=== PATIENT | male | born 1945 | race Caucasian/White ===

== ENCOUNTER 2016-11-20 19:13 | Emergency (ER) | payer MEDICARE, BC ==
[~2016-11-20] VITALS: Ht 185.4 cm; Wt 134.1 kg
[~2016-11-20 19:13] MED LIST: BETAPACE 80MG80 MG PO; BYSTOLIC20 MG PO; DIABETA 5MG5 MG/TAB PO; HCTZ 25MG TAB25 MG PO; LOTENSIN40 MG PO; MIDAMOR 5MG TAB5 MG PO; MOBIC15 MG PO; NORVASC 10MG10 MG PO; PERCOCET 325 MG1 TA2 PO; ULTRAM 50MG TAB50 MG PO
[2016-11-20] MEDS ORDERED: SYNTHROID0.05 MG/TA PO (19:26)
[2016-11-20] MEDS ORDERED: NORVASC 10MG10 MG PO (19:27)
[2016-11-20 20:08] LABS: INFLUENZA B NEGATIVE
[2016-11-20 20:27] VITALS: BP 155/80; PULSE 66
[2017-03-03] MEDS ORDERED: LIPITOR 10MG10 MG PO (08:03)
[2017-03-03] MEDS ORDERED: NORCO 325 MG-7.1 TAB PO (08:03)
[2017-03-03] MEDS ORDERED: NEURONTIN100 MG/CAP PO (08:04)
== END 2016-11-20 20:27 | disposition home or self-care (01) ==
LOC: COL.ER 19:13
PROVIDERS: Family Medicine
DX: R00.2 Palpitations (principal); I10 Essential (primary) hypertension; I48.91 Unspecified atrial fibrillation

== ENCOUNTER 2017-04-14 07:47 | Emergency (ER) | payer MEDICARE, BC ==
[~2017-04-14] VITALS: Ht 185.4 cm; Wt 129.5 kg
[~2017-04-14 07:47] MED LIST changes: +LIPITOR 10MG10 MG PO; +NEURONTIN100 MG/CAP PO; +NORCO 325 MG-7.1 TAB PO; +SYNTHROID0.05 MG/TA PO
[2017-04-14 07:49] VITALS: BP 153/87; PULSE 70; TEMP 99.4
[2017-04-14] MEDS ORDERED: LIPITOR 10MG10 MG PO (08:01)
[2017-04-14] MEDS ORDERED: PREDNISONE20 MG PO (08:41)
== END 2017-04-14 08:55 | disposition home or self-care (01) ==
LOC: COL.ER 07:47
DX: M25.531 Pain in right wrist (principal); I10 Essential (primary) hypertension; Z87.891 Personal history of nicotine dependence

== ENCOUNTER 2017-04-15 08:00 | Outpatient (RCR) | payer MEDICARE, BC ==
[2017-03-03 08:05] VITALS: BP 147/78; PULSE 72; TEMP 98
[2017-03-04 08:26] LABS: BASO % 0.2 % (0.0-2.0); EOS # 0.3 (0.0-0.7); GRAN % 68.3 % (42.2-75.2); LYMPH % 17.5 % (20.0-51.0); MEAN CELL VOLUME 89 fl (80.0-100.0); MEAN CORPUSCULAR HGB CONC 33 g/dl (33.0-37.0); MEAN PLATELET VOLUME 9.4 fl (7.4-10.4); MONO # 0.5 (0.1-0.6); MONO % 8.7 % (1.7-9.3); PLATELET COUNT 211 K/mm3 (130-400); RED BLOOD COUNT 3.53 M/mm3 (4.20-5.60); REDCELL DISTRIBUTION WIDTH-CV 12.7 % (11.5-14.5); WHITE BLOOD COUNT 5.8 K/mm3 (4.8-10.8)
[2017-03-04 08:27] LABS: HEMATOCRIT 31.5 % (42.0-52.0); HEMOGLOBIN 10.5 g/dl (13.5-18.0); MEAN CORPUSCULAR HEMOGLOBIN 30 pg (27.0-31.0)
[2017-03-04 08:30] VITALS: BP 168/93; PULSE 68; TEMP 98.2
[2017-03-04 08:54] LABS: ADJUSTED CALCIUM 9.7 mg/dL (8.4-10.2); ALBUMIN 3.4 gm/dL (3.5-5.0); C-REACTIVE PROTEIN 4.3 mg/dL (0.0-0.9); CALCIUM 9.2 mg/dL (8.4-10.2); CREATININE, serum 0.73 mg/dL (0.66-1.25); POTASSIUM 3.7 mmol/L (3.4-5.0); TOTAL PROTEIN 6.7 gm/dL (6.4-8.2)
[2017-03-04 08:58] LABS: ERYTHROCYTE SEDIMENTATION RATE 63 mm/hr (0-30)
[2017-03-05 09:17] VITALS: BP 132/71; PULSE 71; TEMP 98
[2017-03-06 08:00] VITALS: BP 134/70; PULSE 69; TEMP 98
[2017-03-07 08:06] VITALS: BP 93/57; PULSE 70; TEMP 98.2
[2017-03-08 08:20] VITALS: BP 135/73; PULSE 69; TEMP 98.3
[2017-03-09 08:13] VITALS: BP 127/70; PULSE 72; TEMP 98.3
[2017-03-10 06:55] VITALS: BP 152/79; PULSE 69; TEMP 98
[2017-03-11 07:26] VITALS: BP 126/65; PULSE 59; TEMP 98.5
[2017-03-11 07:45] LABS: BASO % 0.4 % (0.0-2.0); EOS # 0.1 (0.0-0.7); EOS % 2.1 % (0-4.0); GRAN # 3.3 (1.4-6.5); GRAN % 64.5 % (42.2-75.2); LYMPH # 1.2 (1.2-3.4); LYMPH % 23.8 % (20.0-51.0); MEAN CELL VOLUME 91 fl (80.0-100.0); MEAN CORPUSCULAR HGB CONC 33 g/dl (33.0-37.0); MEAN PLATELET VOLUME 9.2 fl (7.4-10.4); MONO # 0.5 (0.1-0.6); MONO % 8.8 % (1.7-9.3); PLATELET COUNT 247 K/mm3 (130-400); RED BLOOD COUNT 3.56 M/mm3 (4.20-5.60); REDCELL DISTRIBUTION WIDTH-CV 12.8 % (11.5-14.5); WHITE BLOOD COUNT 5.1 K/mm3 (4.8-10.8)
[2017-03-11 07:50] LABS: HEMATOCRIT 32.4 % (42.0-52.0); HEMOGLOBIN 10.6 g/dl (13.5-18.0); MEAN CORPUSCULAR HEMOGLOBIN 30 pg (27.0-31.0)
[2017-03-11 08:10] LABS: ADJUSTED CALCIUM 9.2 mg/dL (8.4-10.2); ALBUMIN 3.6 gm/dL (3.5-5.0); BILIRUBIN,TOTAL 0.7 mg/dL (0.0-1.0); C-REACTIVE PROTEIN 2.5 mg/dL (0.0-0.9); CALCIUM 8.9 mg/dL (8.4-10.2); CREATININE, serum 0.83 mg/dL (0.66-1.25); POTASSIUM 4.2 mmol/L (3.4-5.0); TOTAL PROTEIN 7.1 gm/dL (6.4-8.2)
[2017-03-12 08:08] VITALS: BP 152/90; PULSE 65; TEMP 98
[2017-03-13 08:04] VITALS: BP 128/67; PULSE 75; TEMP 98.3
[2017-03-14 07:57] VITALS: BP 147/91; PULSE 64; TEMP 98.2
[2017-03-15 08:28] VITALS: BP 129/74; PULSE 72; TEMP 98.6
[2017-03-16 08:11] VITALS: BP 138/81; PULSE 70; TEMP 98.7
[2017-03-17 07:14] VITALS: BP 121/75; PULSE 64; TEMP 98.2
[2017-03-18 07:16] VITALS: BP 136/82; PULSE 71; TEMP 97.6
[2017-03-19 08:06] VITALS: BP 122/66; PULSE 63; TEMP 97.8
[2017-03-20 08:30] VITALS: BP 143/84; PULSE 65; TEMP 98
[2017-03-21 08:05] VITALS: BP 134/77; PULSE 66; TEMP 98.4
[2017-03-22 06:41] VITALS: BP 118/78; PULSE 64; TEMP 98.5
[2017-03-22 07:52] LABS: BASO % 0.2 % (0.0-2.0); EOS # 0.1 (0.0-0.7); EOS % 2.3 % (0-4.0); GRAN # 3.6 (1.4-6.5); GRAN % 68.2 % (42.2-75.2); LYMPH # 1.1 (1.2-3.4); MEAN CELL VOLUME 89 fl (80.0-100.0); MEAN CORPUSCULAR HGB CONC 33 g/dl (33.0-37.0); MEAN PLATELET VOLUME 9.7 fl (7.4-10.4); MONO # 0.5 (0.1-0.6); MONO % 8.7 % (1.7-9.3); PLATELET COUNT 225 K/mm3 (130-400); RED BLOOD COUNT 3.82 M/mm3 (4.20-5.60); REDCELL DISTRIBUTION WIDTH-CV 13.2 % (11.5-14.5); WHITE BLOOD COUNT 5.3 K/mm3 (4.8-10.8)
[2017-03-22 07:55] LABS: HEMATOCRIT 34.1 % (42.0-52.0); HEMOGLOBIN 11.3 g/dl (13.5-18.0); MEAN CORPUSCULAR HEMOGLOBIN 30 pg (27.0-31.0)
[2017-03-22 08:10] LABS: ADJUSTED CALCIUM 9.1 mg/dL (8.4-10.2); ALBUMIN 3.7 gm/dL (3.5-5.0); BILIRUBIN,TOTAL 0.8 mg/dL (0.0-1.0); CALCIUM 8.9 mg/dL (8.4-10.2); CREATININE, serum 0.81 mg/dL (0.66-1.25); TOTAL PROTEIN 7.1 gm/dL (6.4-8.2)
[2017-03-22 08:25] LABS: ERYTHROCYTE SEDIMENTATION RATE 48 mm/hr (0-30)
[2017-03-23 08:20] VITALS: BP 126/88; PULSE 65; TEMP 98.3
[2017-03-24 07:23] VITALS: BP 124/81; PULSE 63; TEMP 98.8
[2017-03-25 08:48] VITALS: BP 135/72; PULSE 65; TEMP 98.3
[2017-03-26 08:37] VITALS: BP 133/86; PULSE 73; TEMP 98.3
[2017-03-27 07:57] VITALS: BP 135/67; PULSE 63; TEMP 98
[2017-03-28 08:14] VITALS: BP 142/67; PULSE 65; TEMP 98.2
[2017-03-29 08:00] VITALS: BP 132/71; PULSE 72; TEMP 98.6
[2017-03-29 08:28] VITALS: BP 121/68; PULSE 70; TEMP 98.5
[2017-03-29 08:33] LABS: BASO % 0.4 % (0.0-2.0); EOS # 0.1 (0.0-0.7); EOS % 2.7 % (0-4.0); GRAN % 62.7 % (42.2-75.2); HEMOGLOBIN 12.1 g/dl (13.5-18.0); LYMPH # 1.1 (1.2-3.4); LYMPH % 24.1 % (20.0-51.0); MEAN CELL VOLUME 89 fl (80.0-100.0); MEAN CORPUSCULAR HEMOGLOBIN 30 pg (27.0-31.0); MEAN CORPUSCULAR HGB CONC 33 g/dl (33.0-37.0); MEAN PLATELET VOLUME 9.9 fl (7.4-10.4); MONO # 0.5 (0.1-0.6); MONO % 9.7 % (1.7-9.3); PLATELET COUNT 214 K/mm3 (130-400); RED BLOOD COUNT 4.09 M/mm3 (4.20-5.60); REDCELL DISTRIBUTION WIDTH-CV 13.2 % (11.5-14.5); WHITE BLOOD COUNT 4.7 K/mm3 (4.8-10.8)
[2017-03-29 08:36] LABS: HEMATOCRIT 36.5 % (42.0-52.0)
[2017-03-29 08:54] LABS: ADJUSTED CALCIUM 9.4 mg/dL (8.4-10.2); ALBUMIN 3.9 gm/dL (3.5-5.0); BILIRUBIN,TOTAL 0.6 mg/dL (0.0-1.0); C-REACTIVE PROTEIN 0.9 mg/dL (0.0-0.9); CALCIUM 9.3 mg/dL (8.4-10.2); CREATININE, serum 0.8 mg/dL (0.66-1.25); POTASSIUM 3.8 mmol/L (3.4-5.0); TOTAL PROTEIN 7.6 gm/dL (6.4-8.2)
[2017-03-29 08:56] LABS: ERYTHROCYTE SEDIMENTATION RATE 35 mm/hr (0-30)
[2017-03-30 08:07] VITALS: BP 129/58; PULSE 65; TEMP 98.4
[2017-03-31 09:17] VITALS: BP 110/73; PULSE 65; TEMP 98.4
[2017-04-01 09:00] VITALS: BP 133/72; PULSE 69; TEMP 97.6
[2017-04-02 08:02] VITALS: BP 114/75; PULSE 73; TEMP 98.2
[2017-04-03 07:59] VITALS: BP 131/65; PULSE 56; TEMP 98.2
[2017-04-04 08:30] VITALS: BP 127/72; PULSE 63; TEMP 98.4
[2017-04-05 08:38] LABS: BASO % 0.5 % (0.0-2.0); EOS # 0.1 (0.0-0.7); EOS % 2.1 % (0-4.0); GRAN # 2.4 (1.4-6.5); GRAN % 55.5 % (42.2-75.2); HEMATOCRIT 37.5 % (42.0-52.0); HEMOGLOBIN 12.5 g/dl (13.5-18.0); LYMPH # 1.3 (1.2-3.4); LYMPH % 30.3 % (20.0-51.0); MEAN CELL VOLUME 88 fl (80.0-100.0); MEAN CORPUSCULAR HEMOGLOBIN 30 pg (27.0-31.0); MEAN CORPUSCULAR HGB CONC 33 g/dl (33.0-37.0); MEAN PLATELET VOLUME 9.7 fl (7.4-10.4); MONO # 0.5 (0.1-0.6); MONO % 11.1 % (1.7-9.3); PLATELET COUNT 203 K/mm3 (130-400); RED BLOOD COUNT 4.24 M/mm3 (4.20-5.60); REDCELL DISTRIBUTION WIDTH-CV 13.6 % (11.5-14.5); WHITE BLOOD COUNT 4.2 K/mm3 (4.8-10.8)
[2017-04-05 08:55] LABS: ADJUSTED CALCIUM 9.4 mg/dL (8.4-10.2); ALBUMIN 4.1 gm/dL (3.5-5.0); BILIRUBIN,TOTAL 0.8 mg/dL (0.0-1.0); C-REACTIVE PROTEIN 1.4 mg/dL (0.0-0.9); CALCIUM 9.5 mg/dL (8.4-10.2); CREATININE, serum 0.86 mg/dL (0.66-1.25); POTASSIUM 4.2 mmol/L (3.4-5.0); TOTAL PROTEIN 7.9 gm/dL (6.4-8.2)
[2017-04-05 09:14] VITALS: BP 105/62; PULSE 63; TEMP 98
[2017-04-05 09:26] LABS: ERYTHROCYTE SEDIMENTATION RATE 29 mm/hr (0-30)
[2017-04-06 08:06] VITALS: BP 124/66; PULSE 67; TEMP 98.2
[2017-04-07 08:03] VITALS: BP 123/77; PULSE 65; TEMP 98.8
[2017-04-08 08:19] VITALS: BP 134/69; PULSE 65; TEMP 98.2
[2017-04-09 08:01] VITALS: BP 117/71; PULSE 61; TEMP 98
[2017-04-10 08:09] VITALS: BP 113/69; PULSE 58; TEMP 98.1
[2017-04-11 09:45] VITALS: BP 146/69; PULSE 61; TEMP 98.3
[2017-04-12 08:55] LABS: BASO % 0.2 % (0.0-2.0); EOS # 0.1 (0.0-0.7); EOS % 1.9 % (0-4.0); GRAN # 3.2 (1.4-6.5); GRAN % 67.6 % (42.2-75.2); LYMPH % 21.4 % (20.0-51.0); MEAN CELL VOLUME 88 fl (80.0-100.0); MEAN CORPUSCULAR HEMOGLOBIN 29 pg (27.0-31.0); MEAN CORPUSCULAR HGB CONC 33 g/dl (33.0-37.0); MEAN PLATELET VOLUME 9.8 fl (7.4-10.4); MONO # 0.4 (0.1-0.6); MONO % 8.3 % (1.7-9.3); PLATELET COUNT 178 K/mm3 (130-400); RED BLOOD COUNT 4.09 M/mm3 (4.20-5.60); REDCELL DISTRIBUTION WIDTH-CV 13.4 % (11.5-14.5); WHITE BLOOD COUNT 4.7 K/mm3 (4.8-10.8)
[2017-04-12 08:56] LABS: HEMATOCRIT 36.1 % (42.0-52.0)
[2017-04-12 09:06] LABS: ALBUMIN 3.8 gm/dL (3.5-5.0); BILIRUBIN,TOTAL 0.5 mg/dL (0.0-1.0); C-REACTIVE PROTEIN 0.6 mg/dL (0.0-0.9); CALCIUM 8.8 mg/dL (8.4-10.2); CREATININE, serum 0.81 mg/dL (0.66-1.25); POTASSIUM 4.2 mmol/L (3.4-5.0); TOTAL PROTEIN 7.3 gm/dL (6.4-8.2)
[2017-04-12 09:22] LABS: ERYTHROCYTE SEDIMENTATION RATE 28 mm/hr (0-30)
[2017-04-13 08:07] VITALS: BP 148/81; PULSE 58; TEMP 98.2
[~2017-04-15] VITALS: Ht 185.4 cm; Wt 129.5 kg
[~2017-04-15 08:00] MED LIST changes: +PREDNISONE20 MG PO
== END 2017-04-16 16:36 | disposition home or self-care (01) ==
LOC: EUO 08:00
PROVIDERS: Family Medicine
DX: T81.4XXA Infection following a procedure, initial encounter (principal)
CPT/HCPCS: J0878; J1644

== ENCOUNTER → 2017-12-11 | Outpatient (CLI) | payer MEDICARE, BC | LOC: MHCPAIN 07:54 | DX: G89.29 Other chronic pain (principal); M47.817 Spondylosis without myelopathy or radiculopathy, lumbosacral region; M54.16 Radiculopathy, lumbar region; M53.3 Sacrococcygeal disorders, not elsewhere classified; M96.1 Postlaminectomy syndrome, not elsewhere classified | CPT/HCPCS: G0463 ==

== ENCOUNTER → 2017-12-20 | Outpatient (CLI) | payer MEDICARE, BC | LOC: MHCPAIN 07:28 | DX: M47.27 Other spondylosis with radiculopathy, lumbosacral region (principal); M46.96 Unspecified inflammatory spondylopathy, lumbar region; M96.1 Postlaminectomy syndrome, not elsewhere classified | CPT/HCPCS: J0461; J1100; Q9967 ==

== ENCOUNTER → 2017-12-26 | Outpatient (CLI) | payer MEDICARE, BC | LOC: MHCPAIN 08:14 | DX: M47.27 Other spondylosis with radiculopathy, lumbosacral region (principal); M46.96 Unspecified inflammatory spondylopathy, lumbar region; M96.1 Postlaminectomy syndrome, not elsewhere classified | CPT/HCPCS: J1100; J2250; J3010; Q9967 ==

== ENCOUNTER → 2018-01-16 | Outpatient (CLI) | payer MEDICARE, BC | LOC: MHCPAIN 08:14 | DX: G89.29 Other chronic pain (principal); M47.27 Other spondylosis with radiculopathy, lumbosacral region; M48.061 Spinal stenosis, lumbar region without neurogenic claudication; M53.3 Sacrococcygeal disorders, not elsewhere classified; M96.1 Postlaminectomy syndrome, not elsewhere classified; Z87.891 Personal history of nicotine dependence | CPT/HCPCS: G0463 ==

== ENCOUNTER 2018-03-27 11:49 | Outpatient (CLI) | payer MEDICARE, BC ==
[~2018-03-27] VITALS: Ht 185.4 cm; Wt 136.8 kg
[~2018-03-27 11:49] MED LIST changes: +ASPIRIN E.C. 8181 MG PO; +LYRICA 150MG C150 MG PO; +TYLENOL 500MG500 MG PO
[2018-03-27 12:07] VITALS: BP 139/82; PULSE 67
[2018-03-27 13:09] VITALS: BP 134/79; PULSE 60; PULSE 62
[2018-03-27 13:15] VITALS: BP 126/72; PULSE 57
[2018-03-27 13:30] VITALS: BP 118/70; PULSE 55
[2018-03-27 13:45] VITALS: BP 111/71; PULSE 56
[2018-03-27 14:00] VITALS: BP 117/76; PULSE 56
== END 2018-03-27 14:48 | disposition home or self-care (01) ==
LOC: COL.RAD 11:49
DX: M48.061 Spinal stenosis, lumbar region without neurogenic claudication (principal); M43.17 Spondylolisthesis, lumbosacral region; Z96.9 Presence of functional implant, unspecified; M25.78 Osteophyte, vertebrae; Z98.1 Arthrodesis status
CPT/HCPCS: Q9965

== ENCOUNTER 2018-12-03 07:15 | Emergency (ER) | payer MEDICARE, BC ==
[~2018-12-03] VITALS: Ht 185.4 cm; Wt 134.1 kg
[2018-12-03 07:19] VITALS: TEMP 98.4
[2018-12-03] MEDS ORDERED: PREDNISONE20 MG PO ×2 (08:15)
[2018-12-03 08:28] VITALS: BP 133/73; PULSE 80
== END 2018-12-03 08:32 | disposition home or self-care (01) ==
LOC: COL.ER 07:15
DX: M25.552 Pain in left hip (principal); I10 Essential (primary) hypertension; E78.5 Hyperlipidemia, unspecified; M19.90 Unspecified osteoarthritis, unspecified site; Z87.891 Personal history of nicotine dependence; Z79.82 Long term (current) use of aspirin
CPT/HCPCS: J7512

== ENCOUNTER → 2019-02-27 | Outpatient (CLI) | payer MEDICARE, BC | LOC: COL.RAD 08:41 | DX: S46.812A Strain of other muscles, fascia and tendons at shoulder and upper arm level, left arm, initial encounter (principal); Z96.612 Presence of left artificial shoulder joint | CPT/HCPCS: Q9967 ==

== ENCOUNTER 2019-09-12 13:51 | Observation (INO) | payer MEDICARE, BC ==
[~2019-09-12] VITALS: Ht 185.4 cm; Wt 141.6 kg
[2019-09-12 14:34] LABS: BASO % 0.2 % (0.0-2.0); EOS # 0.1 (0.0-0.7); EOS % 1.2 % (0-4.0); GRAN # 6.1 (1.4-6.5); GRAN % 75.1 % (42.2-75.2); HEMOGLOBIN 13.6 g/dl (13.5-18.0); LYMPH # 1.3 (1.2-3.4); LYMPH % 16.3 % (20.0-51.0); MEAN CELL VOLUME 87 fl (80.0-100.0); MEAN CORPUSCULAR HEMOGLOBIN 31 pg (27.0-31.0); MEAN CORPUSCULAR HGB CONC 36 g/dl (33.0-37.0); MONO # 0.5 (0.1-0.6); MONO % 6.5 % (1.7-9.3); PLATELET COUNT 227 K/mm3 (130-400); RED BLOOD COUNT 4.35 M/mm3 (4.20-5.60)
[2019-09-12 14:36] LABS: ALANINE AMINOTRANSFERASE 26 U/L (21-72); ALKALINE PHOSPHATASE 78 U/L (50-136); ANION GAP 10 mmol/L (7-16); AST,SGOT 28 U/L (15-37); BILIRUBIN,TOTAL 0.8 mg/dL (0.0-1.0); BLOOD UREA NITROGEN 30 mg/dL (9-20); CALCIUM 9.3 mg/dL (8.4-10.2); CARBON DIOXIDE 23 mmol/L (22-30); CHLORIDE 107 mmol/L (98-107); CREATININE, serum 0.93 (0.66-1.25); GLUCOSE 162 mg/dL (74-106); POTASSIUM 3.9 mmol/L (3.4-5.0); SODIUM 140 mmol/L (137-145); TOTAL PROTEIN 6.9 gm/dL (6.4-8.2)
[2019-09-12 14:49] LABS: TROPONIN-I < 0.012 ng/mL (0.000-0.035)
[2019-09-12 15:58] LABS: PROTHROMBIN TIME 11.5 SECONDS (9.7-12.8)
[2019-09-12] MEDS ORDERED: MOBIC15 MG PO (18:30)
[2019-09-12] MEDS ORDERED: PRILOSEC 20MG20 MG PO (18:31)
[2019-09-12] MEDS ORDERED: METHOTREXA2.5 MG/TAB PO (18:53)
[2019-09-12] MEDS ORDERED: FOLIC ACID 11 MG/TA1 PO (18:53)
[2019-09-12] MEDS ORDERED: B COMPLEX #11 TA1 PO (18:54)
[2019-09-12] MEDS ORDERED: VITAMIN D31000 IU PO (18:54)
[2019-09-12] MEDS ORDERED: ROXICODONE 55 MG/TAB PO (18:55)
[2019-09-12 20:31] VITALS: BP 146/70; PULSE 60; TEMP 97.5
--- NOTE | 2019-09-12 22:00 | NUR ---
Report received from Valery in ED. Pt came up to floor via faisal with family members. Assessment complete. Denies any pain or discomfort or dizzines. C/O slight nausea but tolerable. No vomiting. Pt aware of PRN meds and is able to make needs known. On NPO status, pt understands. IV to LF patent with fluids initiated. On tele monitor, leads checked. Meds given as ordered. Call light within reach.
[2019-09-12 22:27] LABS: PH 5 (5-8); SQUAMOUS EPITHELIAL None Seen /hpf; URINE APPEARANCE Clear; URINE BACTERIA None Seen /hpf; URINE BILIRUBIN Negative (NEGATIVE); URINE BLOOD Negative (NEGATIVE); URINE COLOR Yellow; URINE GLUCOSE Negative (NEGATIVE); URINE KETONE Negative (NEGATIVE); URINE LEUKOCYTE ESTERASE Negative (NEGATIVE); URINE NITRATE Negative (NEGATIVE); URINE PROTEIN(semi-quant) Negative (NEGATIVE); URINE RBC 0-2 /hpf; URINE UROBILINOGEN Negative (NEGATIVE)
[2019-09-12 23:14] LABS: COLLECTION METHOD CLEAN CATCH
[2019-09-12 23:59] VITALS: BP 137/74; PULSE 61; TEMP 97.5
[2019-09-13 03:43] VITALS: BP 133/73; PULSE 53; TEMP 97.4
--- NOTE | 2019-09-13 05:39 | NUR ---
Pt uneventful throughout the night. Needs attended too. At 0535, pt states vertigo is gone. Meds given as administered. Call light within reach.
--- NOTE | 2019-09-13 07:18 | NUR ---
Report given to ALEX Interiano.
[2019-09-13 08:12] LABS: BASO % 0.2 % (0.0-2.0); EOS % 0.5 % (0-4.0); GRAN # 4.4 (1.4-6.5); HEMATOCRIT 38.4 % (42.0-52.0); HEMOGLOBIN 13.4 g/dl (13.5-18.0); LYMPH # 1.2 (1.2-3.4); LYMPH % 20.1 % (20.0-51.0); MEAN CELL VOLUME 89 fl (80.0-100.0); MEAN CORPUSCULAR HEMOGLOBIN 31 pg (27.0-31.0); MEAN CORPUSCULAR HGB CONC 35 g/dl (33.0-37.0); MEAN PLATELET VOLUME 9.7 fl (7.4-10.4); MONO # 0.4 (0.1-0.6); MONO % 6.9 % (1.7-9.3); PLATELET COUNT 216 K/mm3 (130-400); REDCELL DISTRIBUTION WIDTH-CV 14.5 % (11.5-14.5)
[2019-09-13 08:13] VITALS: BP 139/68; PULSE 57; TEMP 97.9
--- NOTE | 2019-09-13 08:30 | NUR ---
Assessment complete. Pt sitting up in chair, A&O x 4, reports feeling of vertigo has passed, denies pain or nausea at this time. Hand whip sawyer equal bilat. Pt still having unsteady gait. IVF's infusing per orders through left forearm site without s/s of complications. No further needs reported. Call light in reach.
[2019-09-13 08:52] LABS: CREATININE, serum 0.81 (0.66-1.25); POTASSIUM 3.7 mmol/L (3.4-5.0)
--- NOTE | 2019-09-13 10:48 | NUR ---
Vistied, listened, and provided spiritual care.
[2019-09-13 12:45] VITALS: BP 137/70; PULSE 68; TEMP 98.3
--- NOTE | 2019-09-13 13:00 | NUR ---
PT in room with pt, requesting to disconnect IVF's d/t IV pole not moving well and pt planning to discharge later.
--- NOTE | 2019-09-13 13:14 | NUR ---
Plan: To return home. Assess: Patient reports that he has a walker and cane that he uses PRN. Patient reports that he uses [facility] for RX and PCP is Dr. Stephen with no upcoming appointments. Patient reports marcus Guerra () is his emr contact and DPOA. Patient would like DTR's listed Aranza Hui and Diane Simmons . Patient reports having bilateral hearing devices. Patient denies needing any additonal support in home. Action: Educated patient on additional resources. No additonal needs identifed.
[2019-09-13] MEDS ORDERED: ANTIVERT 25MG25 MG PO (13:35)
--- NOTE | 2019-09-13 16:14 | NUR ---
Discharge instructions reviewed with pt regarding medication, physical therapy, and follow-up appointments. Pt verbalizes understanding, discharged home, escorted out of facility via WC accompanied by PORTFOLIO DIRECTOR and pt's .
== END 2019-09-13 16:00 | disposition home or self-care (01) ==
LOC: COL.ER 13:51 → MEDICAL 19:17
PROVIDERS: Emergency Medicine; Nurse Practitioner Family; ADMIT Family Medicine
DX: R42 Dizziness and giddiness (principal); I10 Essential (primary) hypertension; I48.0 Paroxysmal atrial fibrillation; E78.5 Hyperlipidemia, unspecified; E03.9 Hypothyroidism, unspecified; E26.9 Hyperaldosteronism, unspecified; K21.9 Gastro-esophageal reflux disease without esophagitis; I51.89 Other ill-defined heart diseases; Z96.643 Presence of artificial hip joint, bilateral; Z96.653 Presence of artificial knee joint, bilateral; Z98.52 Vasectomy status; Z87.891 Personal history of nicotine dependence; Z91.048 Other nonmedicinal substance allergy status
CPT/HCPCS: A9585; G0378; J2060; J2270; J2550; J7030; J8610; Q9967

== ENCOUNTER → 2021-06-28 | Outpatient (CLI) | payer MEDICARE, BC ==
[~2021-06-28] MED LIST changes: +ANTIVERT 25MG25 MG PO; +B COMPLEX #11 TA1 PO; +FOLIC ACID 11 MG/TA1 PO; +METHOTREXA2.5 MG/TAB PO; +PRILOSEC 20MG20 MG PO; +ROXICODONE 55 MG/TAB PO; +VITAMIN D31000 IU PO
== END ==
LOC: COL.RAD 09:36
DX: Z13.6 Encounter for screening for cardiovascular disorders (principal); I71.4 Abdominal aortic aneurysm, without rupture

== ENCOUNTER 2021-12-14 13:27 | Emergency (ER) | payer MEDICARE, BC ==
[~2021-12-14] VITALS: Ht 185.4 cm; Wt 106.8 kg
[2021-12-14 13:42] VITALS: TEMP 98
[2021-12-14 14:52] LABS: BASO % 0.1 % (0.0-2.0); EOS % 0.4 % (0.0-4.0); GRAN # 5.3 K/mm3 (1.4-6.5); GRAN % 76.5 % (42.2-75.2); HEMATOCRIT 40.9 % (42.0-52.0); HEMOGLOBIN 14.3 g/dl (13.5-18.0); LYMPH # 1.1 K/mm3 (1.2-3.4); LYMPH % 15.4 % (20.0-51.0); MEAN CELL VOLUME 89 fl (80.0-100.0); MEAN CORPUSCULAR HEMOGLOBIN 31 pg (27-31); MEAN CORPUSCULAR HGB CONC 35 g/dl (33.0-37.0); MONO # 0.5 K/mm3 (0.1-0.6); MONO % 7.3 % (1.7-9.3); PLATELET COUNT 175 K/mm3 (130-400); RED BLOOD COUNT 4.58 M/mm3 (4.20-5.60); REDCELL DISTRIBUTION WIDTH-CV 12.5 % (11.5-14.5)
[2021-12-14 15:05] LABS: ALBUMIN 4.1 gm/dL (3.4-4.8); BILIRUBIN,TOTAL 0.7 mg/dL (0.2-1.2); CALCIUM 9.3 mg/dL (8.4-10.2); CREATININE, serum 1.04 mg/dL (0.72-1.25); POTASSIUM 3.5 mmol/L (3.5-4.5); TOTAL PROTEIN 7.2 gm/dL (6.2-8.1)
[2021-12-14 15:11] LABS: TROPONIN-I 0.013 ng/mL (0.00-0.033)
[2021-12-14 16:04] VITALS: BP 134/77; PULSE 80
== END 2021-12-14 16:06 | disposition home or self-care (01) ==
LOC: COL.ER 13:27
PROVIDERS: Personal Emergency Response Attendant
DX: R42 Dizziness and giddiness (principal); R55 Syncope and collapse; Z87.891 Personal history of nicotine dependence
CPT/HCPCS: J7030

== ENCOUNTER 2021-12-21 07:41 | Day surgery (SDC) | payer MEDICARE, BC ==
[~2021-12-21] VITALS: Ht 185.5 cm; Wt 106.0 kg
[2021-12-21] VITALS (9 sets, daily range): BP systolic 106–153; BP diastolic 63–77; PULSE 48–59; TEMP 98.7
[2021-12-21 08:55] LABS: HEMATOCRIT 38.8 % (42.0-52.0); HEMOGLOBIN 13.5 g/dl (13.5-18.0); MEAN CELL VOLUME 90 fl (80.0-100.0); MEAN CORPUSCULAR HEMOGLOBIN 31 pg (27-31); MEAN CORPUSCULAR HGB CONC 35 g/dl (33.0-37.0); MEAN PLATELET VOLUME 9.9 fl (7.4-10.4); PLATELET COUNT 174 K/mm3 (130-400); REDCELL DISTRIBUTION WIDTH-CV 12.4 % (11.5-14.5)
[2021-12-21 08:58] LABS: PROTHROMBIN TIME 10.8 SECONDS (9.7-12.8)
[2021-12-21] MEDS ORDERED: B COMPLEX #11 TA1 PO (08:58)
[2021-12-21 09:01] LABS: PARTIAL THROMBOPLASTIN TIME 26.8 SECONDS (26.0-37.0)
[2021-12-21] MEDS ORDERED: AMOXICILLIN875 MG PO (09:03)
[2021-12-21 09:06] LABS: CALCIUM 8.6 mg/dL (8.4-10.2); CREATININE, serum 0.81 mg/dL (0.72-1.25); POTASSIUM 3.9 mmol/L (3.5-4.5)
[2021-12-21] MEDS ORDERED: TYLENOL 500MG500 MG (09:22)
[2021-12-21] MEDS ORDERED: ICAPS AREDS FO1 EACH PO (09:25)
[2021-12-21] MEDS ORDERED: NORCO 325 MG-51 TAB PO (09:27)
[2021-12-21] MEDS ORDERED: IBU800 M1 PO (09:30)
[2021-12-21] MEDS ORDERED: [UNRECOGNIZED DRUG - OTHER] (09:31)
[2021-12-21] MEDS ORDERED: PERIDEX (CHLOR480 ML MM (09:31)
== END 2021-12-21 15:23 ==
LOC: COL.CAR 07:41
PROVIDERS: Internal Medicine Cardiovascular Disease
DX: I48.0 Paroxysmal atrial fibrillation (principal); I10 Essential (primary) hypertension; E78.00 Pure hypercholesterolemia, unspecified; E78.1 Pure hyperglyceridemia; I49.9 Cardiac arrhythmia, unspecified; I44.0 Atrioventricular block, first degree; Z87.891 Personal history of nicotine dependence
CPT/HCPCS: J1644; J2250; J3010

== ENCOUNTER → 2022-07-04 | Outpatient (CLI) | payer MEDICARE, BC ==
[~2022-07-04] MED LIST changes: +AMOXICILLIN875 MG PO; +IBU800 M1 PO; +ICAPS AREDS FO1 EACH PO; +NORCO 325 MG-51 TAB PO; +PERIDEX (CHLOR480 ML MM; +TYLENOL 500MG500 MG; +[UNRECOGNIZED DRUG - OTHER]
== END ==
LOC: COL.RAD 06-27 09:00
DX: I70.0 Atherosclerosis of aorta (principal); I77.811 Abdominal aortic ectasia

== ENCOUNTER → 2022-11-08 | Outpatient (CLI) | payer MEDICARE, BC | LOC: MHCPAIN 11:12 | DX: M79.2 Neuralgia and neuritis, unspecified (principal); M79.675 Pain in left toe(s); M96.1 Postlaminectomy syndrome, not elsewhere classified | CPT/HCPCS: G0463 ==

== ENCOUNTER → 2022-12-06 | Outpatient (CLI) | payer MEDICARE, BC | LOC: MHCPAIN 13:24 | DX: M79.2 Neuralgia and neuritis, unspecified (principal); M96.1 Postlaminectomy syndrome, not elsewhere classified; M54.50 Low back pain, unspecified; M79.675 Pain in left toe(s) | CPT/HCPCS: G0463 ==

== ENCOUNTER → 2023-01-31 | Outpatient (CLI) | payer MEDICARE, BC | LOC: MHCPAIN 11:20 | DX: M79.2 Neuralgia and neuritis, unspecified (principal); M62.81 Muscle weakness (generalized); M96.1 Postlaminectomy syndrome, not elsewhere classified; M62.84 Sarcopenia | CPT/HCPCS: G0463 ==

== ENCOUNTER → 2023-06-27 | Outpatient (CLI) | payer MEDICARE, BC | LOC: MHCPAIN 10:58 | DX: G60.3 Idiopathic progressive neuropathy (principal); G57.22 Lesion of femoral nerve, left lower limb; M48.062 Spinal stenosis, lumbar region with neurogenic claudication | CPT/HCPCS: G0463 ==

== ENCOUNTER → 2023-07-19 | Outpatient (CLI) | payer MEDICARE, BC | LOC: MHCPAIN 14:20 | DX: M47.816 Spondylosis without myelopathy or radiculopathy, lumbar region (principal); M54.16 Radiculopathy, lumbar region; M48.061 Spinal stenosis, lumbar region without neurogenic claudication | CPT/HCPCS: J1100; Q9967 ==

== ENCOUNTER → 2023-09-24 | Outpatient (CLI) | payer MEDICARE, BC | LOC: MHCPAIN 11:24 | DX: M48.062 Spinal stenosis, lumbar region with neurogenic claudication (principal); G57.22 Lesion of femoral nerve, left lower limb; G60.9 Hereditary and idiopathic neuropathy, unspecified | CPT/HCPCS: G0463 ==

== ENCOUNTER → 2024-01-14 | Outpatient (CLI) | payer MEDICARE, BC | LOC: MHCPAIN 13:12 | DX: M48.062 Spinal stenosis, lumbar region with neurogenic claudication (principal); G57.22 Lesion of femoral nerve, left lower limb; G60.9 Hereditary and idiopathic neuropathy, unspecified | CPT/HCPCS: G0463 ==

== ENCOUNTER → 2024-03-04 | Outpatient (CLI) | payer MEDICARE, BC | LOC: MHCPAIN 15:00 | DX: M48.062 Spinal stenosis, lumbar region with neurogenic claudication (principal); Z98.890 Other specified postprocedural states; G60.9 Hereditary and idiopathic neuropathy, unspecified | CPT/HCPCS: G0463 ==